=== PATIENT | female | born 1990 | race African-American/Black ===

== ENCOUNTER 2021-03-10 09:52 | Emergency (ER) | payer OTHER ==
[~2021-03-10] VITALS: Ht 157.5 cm; Wt 63.5 kg
[2021-03-10] MEDS ORDERED: NOHOMEMEDICATIONS (10:03)
[2021-03-10 10:42] LABS: ABSOLUTE NEUTROPHILS 2.4 thou/uL (1.4-8.2); BASOPHILS 0.7 % (0.0-2.0); EOSINOPHILS 1.5 % (0.0-3.0); HEMATOCRIT 35.4 % (37.0-47.0); HEMOGLOBIN 11.8 gm/dL (12.0-15.0); LYMPHOCYTES 26.4 % (24.0-44.0); MCH 29.8 pg (26.0-34.0); MCHC 33.3 g/dL (28.0-37.0); MCV 89.4 fL (80.0-100.0); MONOCYTES 7.9 % (1.0-8.0); PLATELET COUNT 326 thou/uL (150-400); POLYS 63.5 % (36.0-66.0); RBC 3.96 mil/uL (4.20-5.00); RDW 13.2 % (10.5-14.5); WBC 3.8 thou/uL (4.0-11.0)
[2021-03-10 10:47] LABS: CALCIUM 8.5 mg/dL (8.5-10.1); CREATININE 0.9 mg/dL (0.6-1.0); POTASSIUM 4.1 mmol/L (3.5-5.1)
[2021-03-10 10:53] LABS: ALBUMIN 3.7 g/dL (3.4-5.0); TOTAL BILIRUBIN 0.3 mg/dL (0.2-1.0); TOTAL PROTEIN 7.3 g/dL (6.4-8.2)
[2021-03-10 11:26] VITALS: BP 121/72
--- NOTE | 2021-03-12 07:37 | EKG ---
[facility] [place] [address] ELECTROCARDIOGRAM REPORT Name: MILADYS REYES Room #: DEP CALEB Diallo#: [id number] Admission: 03/10/21 Attend Phys: Discharge: 03/10/21 Date of : [birth year] Report #: [id number] [facility] ED Test Date: 2021-03-10 Test Time: 10:00:17 Pat Name: MILADYS REYES Department: Room: Gender: F [employer]: nan : 1990 Requested By: Ryne Gimenez Order Number: [id number] MD: Sergio Mccoy Measurements Intervals [place] Rate: 84 P: 36 OR: 133 QRS: 61 QRSD: 80 T: 9 QT: 388 QTc: 459 Interpretive Statements Sinus rhythm Borderline T abnormalities, inferior leads Baseline wander in lead(s) V6 No previous ECG available for comparison Electronically Signed On 03-12-2021 7:37:08 CDT by Segrio Mccoy [email or web address] <ELECTRONICALLY SIGNED> By: Sergio Mccoy MD, [facility] 03/12/21 0737 1000 Emmy Mccoy MD, FACC /EPI
== END 2021-03-10 11:26 | disposition home or self-care (01) ==
LOC: ER 09:52
PROVIDERS: Emergency Medicine
DX: R07.89 Other chest pain (principal); R10.9 Unspecified abdominal pain